=== PATIENT | male | born 1935 | race Caucasian/White ===

== ENCOUNTER 2021-07-20 23:00 | Inpatient (IN) ==
[2021-07-21] MEDS ORDERED: Ondansetron 4 MG/2 ML VIAL IVP PRN (00:47)
[2021-07-21] MEDS ORDERED: Acetaminophen 325 MG TABLET PO PRN (00:47)
[2021-07-21] MEDS ORDERED: Naloxone 0.4 MG/ML INJ IVP PRN (00:47)
[2021-07-21] MEDS ORDERED: Perflutren Lipid Microsphere 1.3 ML in 0.9 % Sodium Chloride 8.7 ML IVP PRN (00:50)
[2021-07-21 04:55] LABS: INR 1.2; Prothrombin Time 13.6 Seconds (9.4-12.1)
[2021-07-21 04:56] LABS: Basophils % 0.3 %; Eosinophils # 0.1 K/mcL (0.0-0.6); Eosinophils % 1.4 %; Hematocrit 45.3 % (37.5-50.1); Hemoglobin 14.8 g/dL (12.9-16.9); Immature Granulocytes % 0.6 % (0-4); Lymphocytes # 1.6 K/mcL (0.6-4.6); Lymphocytes % 23.8 %; Mean Corpuscular HGB Conc 32.7 g/dL (31.6-35.5); Mean Corpuscular Hemoglobin 26.7 pg (28.0-33.3); Mean Corpuscular Volume 81.6 fL (83.0-100.0); Mean Platelet Volume 10.9 fL (9.4-12.4); Monocytes # 0.6 K/mcL (0.0-1.3); Monocytes % 8.8 %; Neutrophils # 4.2 K/mcL (1.6-8.9); Platelet Count 152 K/mcL (140-400); Red Blood Count 5.55 M/mcL (4.19-5.50); Red Cell Distribution Width 13.9 % (11.5-14.5); Segmented Neutrophils % 65.1 %; White Blood Count 6.5 K/mcL (4.3-11.1)
[2021-07-21 05:29] LABS: Alanine Aminotransferase 10 Units/L (7-52); Albumin 3.5 g/dL (3.5-5.7); Albumin/Globulin Ratio 1.3 (1.1-2.2); Alkaline Phosphatase 85 Units/L (34-104); Aspartate Amino Transferase 17 Units/L (13-39); BUN/Creatinine Ratio 13 (6-26); Bilirubin,Total 1.2 mg/dL (0.3-1.0); Blood Urea Nitrogen 18 mg/dL (8-23); Calcium 8.9 mg/dL (8.6-10.3); Carbon Dioxide 26 mEq/L (23-29); Chloride 109 mEq/L (98-107); Chol/HDL Ratio 3.9 (0-4.9); Cholesterol 140 mg/dL (< 200); Globulin 2.6 g/dL (2.4-3.5); Glucose 77 mg/dL (70-105); HDL Cholesterol 36 mg/dL (40-59); LDL Cholesterol,Calculated 61 mg/dL (< 100); Magnesium 1.7 mg/dL (1.6-2.6); Osmolality,Calculated 299 (280-300); Potassium 3.3 mEq/L (3.5-5.1); Sodium 144 mEq/L (136-145); Total Protein 6.1 g/dL (6.4-8.9); Triglycerides 213 mg/dL (< 150); eGFR For African Americans > 60 (> 60); eGFR For Non-African Americans 50 (> 60)
[2021-07-21 05:34] LABS: Estimated Average Glucose 120 mg/dl; Hemoglobin A1C 5.8 %
[2021-07-21] MEDS: Aspirin Enteric Coated 81 MG Tablet PO SCH (08:29)
[2021-07-21] MEDS ORDERED: cefTRIAXone 2,000 MG in 0.9 % Sodium Chloride 20 ML IVP ONE (21:08)
[2021-07-22] MEDS ORDERED: Haloperidol Lactate 5 MG/ML VIAL IVP ONE (00:26)
[2021-07-22 02:13] LABS: BUN/Creatinine Ratio 16 (6-26); Blood Urea Nitrogen 21 mg/dL (8-23); Calcium 9.5 mg/dL (8.6-10.3); Carbon Dioxide 22 mEq/L (23-29); Chloride 108 mEq/L (98-107); Glucose 114 mg/dL (70-105); Osmolality,Calculated 298 (280-300); Potassium 3.6 mEq/L (3.5-5.1); Sodium 142 mEq/L (136-145); eGFR For African Americans > 60 (> 60); eGFR For Non-African Americans 52 (> 60)
[2021-07-22] MEDS ORDERED: diazePAM 10 MG/2 ML SYRINGE IVP ONE (02:31)
[2021-07-22] MEDS: Aspirin Enteric Coated 81 MG Tablet PO SCH (09:26)
[2021-07-22] MEDS: cefTRIAXone 1,000 MG in 0.9 % Sodium Chloride 10 ML IVP SCH (09:27)
[2021-07-22] MEDS ORDERED: VISINE TEARS DROPS 15 ML BOTH EYES PRN (12:07)
[2021-07-22] MEDS: Carbidopa/Levodopa 25/100 TABLET PO SCH ×2 (14:00→20:42)
[2021-07-22] MEDS: Melatonin 3 MG TABLET PO PRN (20:43)
[2021-07-23 08:40] LABS: BUN/Creatinine Ratio 18 (6-26); Blood Urea Nitrogen 24 mg/dL (8-23); Carbon Dioxide 30 mEq/L (23-29); Chloride 107 mEq/L (98-107); Glucose 109 mg/dL (70-105); Osmolality,Calculated 301 (280-300); Potassium 3.9 mEq/L (3.5-5.1); Sodium 143 mEq/L (136-145); eGFR For African Americans > 60 (> 60); eGFR For Non-African Americans 52 (> 60)
[2021-07-23] MEDS: Carbidopa/Levodopa 25/100 TABLET PO SCH ×3 (08:41→21:49)
[2021-07-23] MEDS: *HR* Rivaroxaban 15 MG TABLET PO SCH (08:41)
[2021-07-23] MEDS: cefTRIAXone 1,000 MG in 0.9 % Sodium Chloride 10 ML IVP SCH (08:41)
[2021-07-23] MEDS: Losartan/HCTZ 50-12.5 TABLET PO SCH (08:42)
[2021-07-23] MEDS: Aspirin Enteric Coated 81 MG Tablet PO SCH (08:42)
[2021-07-23] MEDS: Melatonin 3 MG TABLET PO PRN (22:53)
[2021-07-23] MEDS: *HR* HYDROcodone/Acet 5/325 mg TABLET PO PRN (22:53)
[2021-07-24 07:47] LABS: BUN/Creatinine Ratio 22 (6-26); Blood Urea Nitrogen 29 mg/dL (8-23); Calcium 9.3 mg/dL (8.6-10.3); Carbon Dioxide 26 mEq/L (23-29); Chloride 110 mEq/L (98-107); Glucose 111 mg/dL (70-105); Osmolality,Calculated 305 (280-300); Potassium 3.7 mEq/L (3.5-5.1); Sodium 144 mEq/L (136-145); eGFR For African Americans > 60 (> 60); eGFR For Non-African Americans 51 (> 60)
[2021-07-24] MEDS: cefTRIAXone 1,000 MG in 0.9 % Sodium Chloride 10 ML IVP SCH (08:13)
[2021-07-24] MEDS: Carbidopa/Levodopa 25/100 TABLET PO SCH ×3 (08:19→20:49)
[2021-07-24] MEDS: Losartan/HCTZ 50-12.5 TABLET PO SCH (08:19)
[2021-07-24] MEDS: Aspirin Enteric Coated 81 MG Tablet PO SCH (08:20)
[2021-07-24] MEDS: *HR* Rivaroxaban 15 MG TABLET PO SCH (08:21)
[2021-07-24] MEDS: Melatonin 3 MG TABLET PO PRN (20:49)
[2021-07-24] MEDS: *HR* HYDROcodone/Acet 5/325 mg TABLET PO PRN (20:49)
[2021-07-25 07:18] LABS: Basophils % 0.5 %; Eosinophils # 0.2 K/mcL (0.0-0.6); Eosinophils % 2.4 %; Hematocrit 46.6 % (37.5-50.1); Hemoglobin 15.2 g/dL (12.9-16.9); Immature Granulocytes % 0.7 % (0-4); Lymphocytes # 1.8 K/mcL (0.6-4.6); Lymphocytes % 24.4 %; Mean Corpuscular HGB Conc 32.6 g/dL (31.6-35.5); Mean Corpuscular Hemoglobin 27.2 pg (28.0-33.3); Mean Corpuscular Volume 83.4 fL (83.0-100.0); Mean Platelet Volume 11.4 fL (9.4-12.4); Monocytes # 0.7 K/mcL (0.0-1.3); Monocytes % 9.5 %; Neutrophils # 4.6 K/mcL (1.6-8.9); Platelet Count 163 K/mcL (140-400); Red Blood Count 5.59 M/mcL (4.19-5.50); Red Cell Distribution Width 14.3 % (11.5-14.5); Segmented Neutrophils % 62.5 %; White Blood Count 7.4 K/mcL (4.3-11.1)
[2021-07-25 07:37] LABS: BUN/Creatinine Ratio 25 (6-26); Blood Urea Nitrogen 31 mg/dL (8-23); Calcium 9.7 mg/dL (8.6-10.3); Carbon Dioxide 25 mEq/L (23-29); Chloride 107 mEq/L (98-107); Glucose 101 mg/dL (70-105); Osmolality,Calculated 303 (280-300); Potassium 3.6 mEq/L (3.5-5.1); Sodium 143 mEq/L (136-145); eGFR For African Americans > 60 (> 60); eGFR For Non-African Americans 55 (> 60)
[2021-07-25] MEDS: Carbidopa/Levodopa 25/100 TABLET PO SCH ×3 (08:46→21:12)
[2021-07-25] MEDS: Aspirin Enteric Coated 81 MG Tablet PO SCH (08:46)
[2021-07-25] MEDS: Losartan/HCTZ 50-12.5 TABLET PO SCH (08:46)
[2021-07-25] MEDS: cefTRIAXone 1,000 MG in 0.9 % Sodium Chloride 10 ML IVP SCH (08:47)
[2021-07-25] MEDS: *HR* Rivaroxaban 15 MG TABLET PO SCH (08:47)
[2021-07-25] MEDS: Melatonin 3 MG TABLET PO PRN (21:12)
[2021-07-26 06:08] LABS: Basophils # 0.1 K/mcL (0.0-0.2); Basophils % 0.7 %; Eosinophils # 0.2 K/mcL (0.0-0.6); Eosinophils % 3.5 %; Hematocrit 46.4 % (37.5-50.1); Hemoglobin 14.4 g/dL (12.9-16.9); Immature Granulocytes % 0.9 % (0-4); Lymphocytes # 1.8 K/mcL (0.6-4.6); Lymphocytes % 26.4 %; Mean Corpuscular Hemoglobin 26.5 pg (28.0-33.3); Mean Corpuscular Volume 85.5 fL (83.0-100.0); Mean Platelet Volume 11.8 fL (9.4-12.4); Monocytes # 0.6 K/mcL (0.0-1.3); Platelet Count 156 K/mcL (140-400); Red Blood Count 5.43 M/mcL (4.19-5.50); Red Cell Distribution Width 14.3 % (11.5-14.5); Segmented Neutrophils % 59.5 %; White Blood Count 6.8 K/mcL (4.3-11.1)
[2021-07-26 06:18] LABS: Calcium 9.5 mg/dL (8.6-10.3); Potassium 3.5 mEq/L (3.5-5.1)
[2021-07-26] MEDS: cefTRIAXone 1,000 MG in 0.9 % Sodium Chloride 10 ML IVP SCH (08:23)
[2021-07-26] MEDS: Carbidopa/Levodopa 25/100 TABLET PO SCH ×2 (08:24→15:12)
[2021-07-26] MEDS: Losartan/HCTZ 50-12.5 TABLET PO SCH (08:24)
[2021-07-26] MEDS: Aspirin Enteric Coated 81 MG Tablet PO SCH (08:25)
[2021-07-26] MEDS: *HR* Rivaroxaban 15 MG TABLET PO SCH (08:25)
[2021-07-26 14:36] VITALS: BP 107/64; PULSE 60; TEMP 98.1; O2SAT 95
[2021-07-26 18:39] LABS: Adenovirus Not Detected (Not Detect); Bordetella Pertussis Not Detected (Not Detect); Chlamydophila pneumoniae Not Detected (Not Detect); Coronavirus 229E Not Detected (Not Detect); Coronavirus HKU1 Not Detected (Not Detect); Coronavirus NL63 Not Detected (Not Detect); Coronavirus OC43 Not Detected (Not Detect); Human Metapneumovirus Not Detected (Not Detect); Human Rhinovirus/Enterovirus Not Detected (Not Detect); Influenza A Subtype 2009 H1 Not Detected (Not Detect); Influenza B Not Detected (Not Detect); Mycoplasma pneumoniae Not Detected (Not Detect); Parainfluenza Virus 1 Not Detected (Not Detect); Parainfluenza Virus 2 Not Detected (Not Detect); Parainfluenza Virus 3 Not Detected (Not Detect); Parainfluenza Virus 4 Not Detected (Not Detect); Respiratory Syncytial Virus Not Detected (Not Detect); SARS-CoV-2 Not Detected (Not Detect)
== END 2021-07-26 20:00 | DRG 65 ==
LOC: 3BNU → SUATTDRO 07-22 16:22
PROVIDERS: ADMIT Internal Medicine; ATTEND Internal Medicine